=== PATIENT | female | born 1965 | race African-American/Black ===

== ENCOUNTER 2021-08-09 12:07 | Inpatient (IN) | payer SELFPAY ==
[~2021-08-09] VITALS: Ht 170.2 cm; Wt 123.5 kg
[~2021-08-09 12:07] MED LIST: MOTRIN
[2021-08-09] MEDS ORDERED: DILTIAZEM HCL 5MG/ML 5ML VIAL IV STA (12:33)
[2021-08-09] MEDS ORDERED: DIGOXIN 500MCG/2ML AMP IV ONE (12:45)
[2021-08-09 12:50] LABS: BASOPHILS % 0.9 % (0.0-2.0); EOSINOPHILS % 0.1 % (0.0-5.0); HEMATOCRIT. 39.2 % (36.0-48.0); HEMOGLOBIN. 12.7 g/dL (12.0-16.0); LYMPHOCYTES % 28.4 % (20.0-50.0); MEAN CORPUSCULAR HEMOGLOBIN 28.6 pg (28.0-32.0); MEAN PLATELET VOLUME 11.8 fl (7.4-10.4); MONOCYTES % 4.6 % (2.0-8.0); PLATELET 227 x1000/uL (130-400); RED BLOOD CELL COUNT 4.45 mill/uL (4.2-5.4); RED CELL DISTRIBUTION WIDTH 14.3 % (11.6-14.6)
[2021-08-09 12:55] LABS: CHLORIDE 108 mEq/L (98-107)
[2021-08-09] MEDS ORDERED: FUROSEMIDE 40MG/4ML VIAL IVP SCH (13:30)
[2021-08-09] MEDS ORDERED: NITROGLYCERIN 50MG PREMIX 250 ML IV ONE (13:30)
[2021-08-09] MEDS ORDERED: NITROGLYCERIN 0.1MG/HR PATCH TOP NR (13:45)
[2021-08-09 14:13] LABS: HCG SCREEN INDETERMINATE
[2021-08-09] MEDS ORDERED: AMLODIPINE 10MG TABLET PO SCH (15:30)
[2021-08-09] MEDS ORDERED: MORPHINE SULFATE 2 MG/ML CPJ (NOT FOR IM USE) IV PRN (15:30)
[2021-08-09] MEDS ORDERED: HYDROCODONE/ACETAMINOPHEN 5/325MG TABLET PO PRN (15:30)
[2021-08-09] MEDS ORDERED: DILTIAZEM HCL 5MG/ML 5ML VIAL IV NR (15:30)
[2021-08-09] MEDS ORDERED: FUROSEMIDE 40MG/4ML VIAL IV SCH (15:30)
[2021-08-09] MEDS ORDERED: DILTIAZEM HCL 30MG TABLET PO PRN (15:30)
[2021-08-09] MEDS ORDERED: ACETAMINOPHEN 325MG TABLET PO PRN (15:30)
[2021-08-09] MEDS ORDERED: MAGNESIUM/ALUMINUM HYDROXIDE/SIMETHICONE 30ML UDC PO PRN (15:30)
[2021-08-09] MEDS ORDERED: ONDANSETRON HCL 4MG/2ML INJ IV PRN (15:30)
[2021-08-09] MEDS ORDERED: DILTIAZEM HCL 5MG/ML 5ML VIAL IV ONE (15:45)
[2021-08-09 17:01] LABS: INR 1.2; PROTHROMBIN TIME 12.8 sec (9.6-11.0)
[2021-08-09] MEDS: DILTIAZEM HCL 60MG TABLET PO SCH ×2 (18:01→21:34)
[2021-08-09] MEDS: CLONIDINE 0.1MG TABLET PO PRN (18:30)
[2021-08-09] MEDS: DILTIAZEM HCL 125 MG in DEXT 5% WATER 100 ML IV NR (19:11)
[2021-08-09] MEDS ORDERED: DILTIAZEM HCL 125 MG in DEXT 5% WATER 100 ML IV NR (19:15)
[2021-08-09] MEDS: ENOXAPARIN 150MG/ML SYR SUBCUT SCH (20:20)
[2021-08-09] MEDS: HYDRALAZINE HCL 25MG TABLET PO SCH (21:34)
[2021-08-10] VITALS (62 sets, daily range): BP systolic 61–194; BP diastolic 33–121
[2021-08-10] MEDS ORDERED: DEXTROSE 50% WATER 50ML SYRINGE IV PRN (00:30)
[2021-08-10] MEDS: BLOOD SUGAR DIAGNOSTIC STRIP TEST SCH ×5 (01:00→21:00)
[2021-08-10] MEDS: DILTIAZEM HCL 125 MG in DEXT 5% WATER 100 ML IV NR (04:31)
[2021-08-10] MEDS: HYDRALAZINE HCL 25MG TABLET PO SCH ×3 (06:36→21:33)
[2021-08-10] MEDS: ENOXAPARIN 150MG/ML SYR SUBCUT SCH ×2 (06:36→17:02)
[2021-08-10 07:21] LABS: BASOPHILS % 0.4 % (0.0-2.0); EOSINOPHILS % 0.5 % (0.0-5.0); HEMATOCRIT. 35.9 % (36.0-48.0); HEMOGLOBIN. 11.5 g/dL (12.0-16.0); LYMPHOCYTES % 35.4 % (20.0-50.0); MEAN CORPUSCULAR HEMOGLOBIN 28.1 pg (28.0-32.0); MEAN PLATELET VOLUME 12.6 fl (7.4-10.4); MONOCYTES % 6.6 % (2.0-8.0); NEUTROPHILS % 57.1 % (40.0-76.0); PLATELET 201 x1000/uL (130-400); RED BLOOD CELL COUNT 4.08 mill/uL (4.2-5.4); RED CELL DISTRIBUTION WIDTH 14.4 % (11.6-14.6)
[2021-08-10 07:34] LABS: CHLORIDE 105 mEq/L (98-107)
[2021-08-10 07:46] LABS: T4 FREE 1.28 ng/dL (0.76-1.46)
[2021-08-10 07:47] LABS: HDL CHOLESTEROL 37 mg/dL (40-59)
[2021-08-10 07:54] LABS: LDL CHOLESTEROL 129 mg/dL (5-100)
[2021-08-10] MEDS ORDERED: FUROSEMIDE 40MG/4ML VIAL IV SCH (09:00)
[2021-08-10] MEDS: DILTIAZEM HCL 60MG TABLET PO SCH (09:11)
[2021-08-10] MEDS: ASPIRIN 81MG EC TABLET PO SCH (09:11)
[2021-08-10] MEDS: FUROSEMIDE 40MG/4ML VIAL IV SCH ×2 (09:12→17:00)
[2021-08-10] MEDS: INSULIN LISPRO 100 UNITS/ML SUBCUT SCH ×4 (09:14→21:34)
[2021-08-10] MEDS: SPIRONOLACTONE 25MG TABLET PO SCH (10:12)
[2021-08-10] MEDS ORDERED: DILTIAZEM HCL 30MG TABLET PO SCH (11:45)
[2021-08-10] MEDS: ISOSORBIDE DINITRATE 10MG TABLET PO SCH ×2 (14:07→16:45)
[2021-08-10] MEDS: DILTIAZEM HCL 90MG TABLET PO SCH ×3 (14:08→21:32)
[2021-08-11] VITALS: BP 131/80
[2021-08-11 04:00] VITALS: BP 137/89
[2021-08-11] MEDS: FUROSEMIDE 40MG/4ML VIAL IV SCH ×2 (05:15→18:31)
[2021-08-11] MEDS: ENOXAPARIN 150MG/ML SYR SUBCUT SCH ×2 (05:17→18:31)
[2021-08-11] MEDS: HYDRALAZINE HCL 25MG TABLET PO SCH ×3 (05:17→21:27)
[2021-08-11] MEDS: BLOOD SUGAR DIAGNOSTIC STRIP TEST SCH ×4 (06:03→21:27)
[2021-08-11] MEDS: INSULIN LISPRO 100 UNITS/ML SUBCUT SCH ×4 (07:10→21:26)
[2021-08-11 08:00] VITALS: BP 143/78
[2021-08-11] MEDS: ISOSORBIDE DINITRATE 10MG TABLET PO SCH ×3 (09:00→18:30)
[2021-08-11] MEDS: SPIRONOLACTONE 25MG TABLET PO SCH (09:27)
[2021-08-11] MEDS: ASPIRIN 81MG EC TABLET PO SCH (09:27)
[2021-08-11] MEDS: DILTIAZEM HCL 90MG TABLET PO SCH ×4 (09:27→21:26)
[2021-08-11 12:00] VITALS: BP 148/95
[2021-08-11 13:40] LABS: CHLORIDE 100 mEq/L (98-107)
[2021-08-11 16:00] VITALS: BP 134/78
[2021-08-11 20:00] VITALS: BP 151/93
[2021-08-12] VITALS: BP 129/70
[2021-08-12 04:00] VITALS: BP 168/81
[2021-08-12] MEDS: CLONIDINE 0.1MG TABLET PO PRN (04:02)
[2021-08-12] MEDS: HYDRALAZINE HCL 25MG TABLET PO SCH ×3 (06:00→22:47)
[2021-08-12] MEDS: BLOOD SUGAR DIAGNOSTIC STRIP TEST SCH ×4 (06:08→21:00)
[2021-08-12] MEDS: ENOXAPARIN 150MG/ML SYR SUBCUT SCH ×2 (06:17→18:17)
[2021-08-12] MEDS: FUROSEMIDE 40MG/4ML VIAL IV SCH ×2 (06:17→18:16)
[2021-08-12] MEDS: INSULIN LISPRO 100 UNITS/ML SUBCUT SCH ×4 (06:19→22:47)
[2021-08-12 08:19] VITALS: BP 152/83
[2021-08-12] MEDS: ASPIRIN 81MG EC TABLET PO SCH (09:26)
[2021-08-12] MEDS: SPIRONOLACTONE 25MG TABLET PO SCH (09:27)
[2021-08-12] MEDS: DILTIAZEM HCL 90MG TABLET PO SCH ×2 (09:27→13:09)
[2021-08-12] MEDS: ISOSORBIDE DINITRATE 10MG TABLET PO SCH ×3 (09:28→17:00)
[2021-08-12] MEDS: POTASSIUM CHLORIDE 20MEQ TABLET SR PO SCH (10:28)
[2021-08-12 11:52] VITALS: BP 133/94
[2021-08-12] MEDS ORDERED: GADOTERATE MEGLUMINE 5 MMOL/10 ML VIAL IV ONE (13:59)
[2021-08-12] MEDS ORDERED: LORAZEPAM 2MG/ML CPJ IV NR (15:00)
[2021-08-12] MEDS ORDERED: DIGOXIN 500MCG/2ML AMP IV NR (15:30)
[2021-08-12] MEDS ORDERED: NALOXONE HCL 0.4MG/ML VIAL IV PRN (15:45)
[2021-08-12 16:00] VITALS: BP 152/82
[2021-08-12] MEDS: DILTIAZEM HCL 60MG TABLET PO SCH ×2 (18:15→22:46)
[2021-08-12] MEDS: DIGOXIN 125MCG TABLET PO SCH (18:16)
[2021-08-12 20:00] VITALS: BP 151/92
[2021-08-13] VITALS: BP 144/108
[2021-08-13] MEDS: BLOOD SUGAR DIAGNOSTIC STRIP TEST SCH ×4 (07:00→21:04)
[2021-08-13] MEDS: ENOXAPARIN 150MG/ML SYR SUBCUT SCH ×2 (07:07→17:13)
[2021-08-13] MEDS: INSULIN LISPRO 100 UNITS/ML SUBCUT SCH ×4 (07:07→21:03)
[2021-08-13] MEDS: FUROSEMIDE 40MG/4ML VIAL IV SCH ×2 (07:08→17:11)
[2021-08-13] MEDS: HYDRALAZINE HCL 25MG TABLET PO SCH ×3 (07:10→21:02)
[2021-08-13 08:00] VITALS: BP 172/98
[2021-08-13] MEDS: ASPIRIN 81MG EC TABLET PO SCH (10:03)
[2021-08-13] MEDS: SPIRONOLACTONE 25MG TABLET PO SCH (10:03)
[2021-08-13] MEDS: DILTIAZEM HCL 60MG TABLET PO SCH ×4 (10:03→21:02)
[2021-08-13] MEDS: ISOSORBIDE DINITRATE 10MG TABLET PO SCH ×3 (10:04→17:11)
[2021-08-13] MEDS: POTASSIUM CHLORIDE 20MEQ TABLET SR PO SCH (10:04)
[2021-08-13] MEDS ORDERED: LORAZEPAM 2MG/ML CPJ IV NR (10:15)
[2021-08-13 12:00] VITALS: BP 146/95
[2021-08-13] MEDS ORDERED: GADOTERATE MEGLUMINE 5 MMOL/10 ML VIAL IV ONE (12:44)
[2021-08-13 16:00] VITALS: BP 165/90
[2021-08-13] MEDS: DIGOXIN 125MCG TABLET PO SCH (17:11)
[2021-08-13] MEDS: CLONIDINE 0.1MG TABLET PO PRN (17:27)
[2021-08-13 17:30] LABS: CHLORIDE 99 mEq/L (98-107)
[2021-08-13 20:00] VITALS: BP 144/80
[2021-08-13] MEDS: ATORVASTATIN CALCIUM 40MG TABLET PO SCH (21:02)
[2021-08-14] VITALS: BP 152/71
[2021-08-14 04:00] VITALS: BP 168/101
[2021-08-14] MEDS: CLONIDINE 0.1MG TABLET PO PRN (05:03)
[2021-08-14] MEDS: BLOOD SUGAR DIAGNOSTIC STRIP TEST SCH ×4 (05:56→20:25)
[2021-08-14] MEDS: FUROSEMIDE 40MG/4ML VIAL IV SCH (06:04)
[2021-08-14] MEDS: ENOXAPARIN 150MG/ML SYR SUBCUT SCH ×2 (06:06→17:25)
[2021-08-14] MEDS: INSULIN LISPRO 100 UNITS/ML SUBCUT SCH ×4 (06:19→20:27)
[2021-08-14] MEDS: HYDRALAZINE HCL 25MG TABLET PO SCH ×3 (06:25→20:26)
[2021-08-14 08:00] VITALS: BP 137/72
[2021-08-14] MEDS: POTASSIUM CHLORIDE 20MEQ TABLET SR PO SCH (08:42)
[2021-08-14] MEDS: ISOSORBIDE DINITRATE 10MG TABLET PO SCH ×3 (08:43→17:24)
[2021-08-14] MEDS: ASPIRIN 81MG EC TABLET PO SCH (08:43)
[2021-08-14] MEDS: DILTIAZEM HCL 60MG TABLET PO SCH ×4 (08:43→20:25)
[2021-08-14] MEDS: SPIRONOLACTONE 25MG TABLET PO SCH (08:43)
[2021-08-14 12:00] VITALS: BP 119/73
[2021-08-14 16:00] VITALS: BP 122/86
[2021-08-14] MEDS: DIGOXIN 125MCG TABLET PO SCH (17:24)
[2021-08-14] MEDS: FUROSEMIDE 40MG TABLET PO SCH (17:24)
[2021-08-14 20:00] VITALS: BP 139/74
[2021-08-14] MEDS: ATORVASTATIN CALCIUM 40MG TABLET PO SCH (20:26)
[2021-08-15] VITALS: BP 147/81
[2021-08-15 04:00] VITALS: BP 135/83
[2021-08-15] MEDS: HYDRALAZINE HCL 25MG TABLET PO SCH ×3 (06:22→21:02)
[2021-08-15] MEDS: BLOOD SUGAR DIAGNOSTIC STRIP TEST SCH ×4 (06:22→20:20)
[2021-08-15] MEDS: INSULIN LISPRO 100 UNITS/ML SUBCUT SCH ×4 (06:22→20:19)
[2021-08-15] MEDS: FUROSEMIDE 40MG TABLET PO SCH ×2 (06:22→17:20)
[2021-08-15] MEDS: ENOXAPARIN 150MG/ML SYR SUBCUT SCH ×2 (06:24→17:20)
[2021-08-15 08:00] VITALS: BP 132/81
[2021-08-15] MEDS: SPIRONOLACTONE 25MG TABLET PO SCH (09:17)
[2021-08-15] MEDS: POTASSIUM CHLORIDE 20MEQ TABLET SR PO SCH (09:17)
[2021-08-15] MEDS: DILTIAZEM HCL 60MG TABLET PO SCH ×4 (09:17→20:19)
[2021-08-15] MEDS: ISOSORBIDE DINITRATE 10MG TABLET PO SCH ×3 (09:17→17:20)
[2021-08-15] MEDS: ASPIRIN 81MG EC TABLET PO SCH (09:17)
[2021-08-15 12:00] VITALS: BP 155/96
[2021-08-15] MEDS: CLONIDINE 0.1MG TABLET PO PRN (15:39)
[2021-08-15 16:00] VITALS: BP 169/83
[2021-08-15] MEDS: DIGOXIN 125MCG TABLET PO SCH (17:20)
[2021-08-15 20:00] VITALS: BP 170/84
[2021-08-15] MEDS: ATORVASTATIN CALCIUM 40MG TABLET PO SCH (20:19)
[2021-08-16] VITALS: BP 156/89
[2021-08-16 04:00] VITALS: BP 149/88
[2021-08-16] MEDS: FUROSEMIDE 40MG TABLET PO SCH (05:10)
[2021-08-16] MEDS: HYDRALAZINE HCL 25MG TABLET PO SCH ×2 (05:10→13:06)
[2021-08-16] MEDS: ENOXAPARIN 150MG/ML SYR SUBCUT SCH (05:11)
[2021-08-16] MEDS: BLOOD SUGAR DIAGNOSTIC STRIP TEST SCH ×2 (05:43→11:42)
[2021-08-16] MEDS: INSULIN LISPRO 100 UNITS/ML SUBCUT SCH ×2 (05:46→12:05)
[2021-08-16 08:00] VITALS: BP 141/85
[2021-08-16] MEDS: POTASSIUM CHLORIDE 20MEQ TABLET SR PO SCH (08:46)
[2021-08-16] MEDS: SPIRONOLACTONE 25MG TABLET PO SCH (08:46)
[2021-08-16] MEDS: ISOSORBIDE DINITRATE 10MG TABLET PO SCH ×2 (08:46→13:03)
[2021-08-16] MEDS: ASPIRIN 81MG EC TABLET PO SCH (08:46)
[2021-08-16] MEDS: DILTIAZEM HCL 60MG TABLET PO SCH ×2 (08:46→13:03)
[2021-08-16 12:00] VITALS: BP 123/86
[2021-08-16 16:34] VITALS: BP 151/98
[2021-08-16] MEDS ORDERED: ENOXAPARIN 120MG/0.8ML SYR SUBCUT SCH (18:00)
== END 2021-08-16 17:10 | disposition home or self-care (01) | DRG 45 ==
LOC: ER 12:07 → CVICU 18:46 → EDBEDREQSVC 18:49 → ENRESERV 20:04 → CANRESERV 20:04 → ENRESERV 23:06 → 7EST 08-10 17:27
PROVIDERS: ADMIT Hospitalist; ATTEND Hospitalist
DX: I63.9 Cerebral infarction, unspecified (principal); R65.11 Systemic inflammatory response syndrome (SIRS) of non-infectious origin with acute organ dysfunction; J96.01 Acute respiratory failure with hypoxia; I21.4 Non-ST elevation (NSTEMI) myocardial infarction; I50.41 Acute combined systolic (congestive) and diastolic (congestive) heart failure; D68.59 Other primary thrombophilia; G81.91 Hemiplegia, unspecified affecting right dominant side; I16.0 Hypertensive urgency; E78.5 Hyperlipidemia, unspecified; E66.9 Obesity, unspecified; I11.0 Hypertensive heart disease with heart failure; Z20.822 Contact with and (suspected) exposure to COVID-19; R74.01 Elevation of levels of liver transaminase levels; Z77.22 Contact with and (suspected) exposure to environmental tobacco smoke (acute) (chronic); I48.11 Longstanding persistent atrial fibrillation; R47.81 Slurred speech; E11.65 Type 2 diabetes mellitus with hyperglycemia; Z68.41 Body mass index [BMI] 40.0-44.9, adult; Z79.899 Other long term (current) drug therapy; Z79.82 Long term (current) use of aspirin; Z88.0 Allergy status to penicillin; Z82.49 Family history of ischemic heart disease and other diseases of the circulatory system
CPT/HCPCS: 36415; 70553; 71045; 80048; 80053; 80061; 80076; 80162; 82962; 83036; 83735; 83880; 84439; 84443; 84484; 84703; 85025; 85379; 86850; 86900; 87426; 92523; 92610; 93005; 93306; 93880; 93970; 97162; 97535; 99291; A9577; J1160; J1650; J1815; J1940; J2060; J3490; J7060

== ENCOUNTER 2021-09-14 13:34 | Emergency (ER) | payer MEDICAID ==
[~2021-09-14] VITALS: Ht 165.1 cm; Wt 92.0 kg
[2021-09-14 15:01] LABS: BASOPHILS % 0.7 % (0.0-2.0); EOSINOPHILS % 2.1 % (0.0-5.0); HEMATOCRIT. 44.8 % (36.0-48.0); HEMOGLOBIN. 14.4 g/dL (12.0-16.0); LYMPHOCYTES % 38.2 % (20.0-50.0); MEAN CORPUSCULAR HEMOGLOBIN 27.9 pg (28.0-32.0); MEAN CORPUSCULAR VOLUME 86.8 fL (81.0-99.0); MEAN PLATELET VOLUME 11.8 fl (7.4-10.4); MONOCYTES % 5.7 % (2.0-8.0); NEUTROPHILS % 53.3 % (40.0-76.0); PLATELET 180 x1000/uL (130-400); RED BLOOD CELL COUNT 5.17 mill/uL (4.2-5.4); RED CELL DISTRIBUTION WIDTH 13.8 % (11.6-14.6)
[2021-09-14 15:07] LABS: CHLORIDE 102 mEq/L (98-107)
[2021-09-14] MEDS ORDERED: APIX5TAB MT (16:07)
[2021-09-14] MEDS ORDERED: ATOR40TA70 MT (16:07)
[2021-09-14] MEDS ORDERED: DILT60TA41 MT (16:07)
[2021-09-14] MEDS ORDERED: POTA-79 MT (16:07)
[2021-09-14] MEDS ORDERED: DIGO125T80 MT (16:07)
[2021-09-14] MEDS ORDERED: SPIR25TA6 MT (16:07)
[2021-09-14] MEDS ORDERED: FURO-151 MT (16:07)
[2021-09-14] MEDS ORDERED: ISOS10TA2 MT (16:07)
[2021-09-14 16:40] VITALS: BP 172/92
== END 2021-09-14 16:44 | disposition home or self-care (01) ==
LOC: ER 13:44
DX: I48.20 Chronic atrial fibrillation, unspecified (principal); R73.9 Hyperglycemia, unspecified; I69.30 Unspecified sequelae of cerebral infarction; Z79.01 Long term (current) use of anticoagulants; E66.9 Obesity, unspecified; Z68.33 Body mass index [BMI] 33.0-33.9, adult
CPT/HCPCS: 36415; 71045; 80053; 83880; 84484; 85025; 93005; 99285

== ENCOUNTER 2021-11-16 11:49 | Emergency (ER) | payer MEDICAID ==
[~2021-11-16] VITALS: Ht 170.2 cm; Wt 122.7 kg
[~2021-11-16 11:49] MED LIST changes: +APIX5TAB MT; +ATOR40TA70 MT; +DIGO125T80 MT; +DILT60TA41 MT; +FURO-151 MT; +ISOS10TA2 MT; +POTA-79 MT; +SPIR25TA6 MT
[2021-11-16 12:05] VITALS: BP 145/71
[2021-11-16] MEDS ORDERED: ATOR10TA69 MT (15:02)
[2021-11-16] MEDS ORDERED: RIVA20TA MT (15:02)
[2021-11-16] MEDS ORDERED: METF-416 MT (15:02)
[2021-11-16] MEDS ORDERED: LANC1EAC MC (15:02)
[2021-11-16] MEDS ORDERED: LOSA25TA26 MT ×2 (15:02)
[2021-11-16] MEDS ORDERED: FURO40TA5 MT (15:02)
[2021-11-16] MEDS ORDERED: GLIP5TAB12 MT (15:02)
[2021-11-16] MEDS ORDERED: SPIR25TA6 MT (15:02)
[2021-11-16] MEDS ORDERED: ASPI-1497 MT (15:02)
[2021-11-16] MEDS ORDERED: DILT360T13 MT ×2 (15:02)
[2021-11-16] MEDS ORDERED: CARV6.2548 MT (15:02)
[2021-11-16] MEDS ORDERED: CARSR60 MT (15:10)
== END 2021-11-16 15:28 | disposition home or self-care (01) ==
LOC: ER 11:49
DX: R09.89 Other specified symptoms and signs involving the circulatory and respiratory systems (principal); Z76.0 Encounter for issue of repeat prescription; Z20.822 Contact with and (suspected) exposure to COVID-19; E11.9 Type 2 diabetes mellitus without complications; I10 Essential (primary) hypertension; Z79.84 Long term (current) use of oral hypoglycemic drugs; Z79.899 Other long term (current) drug therapy; Z88.0 Allergy status to penicillin
CPT/HCPCS: 87426; 99283